=== PATIENT | female | born 1970 | race Caucasian/White ===

== ENCOUNTER → 2017-01-18 | Outpatient (CLI) | payer OTHER ==
[2017-01-18 13:19] LABS: ESTIMATED AVERAGE GLUCOSE 123 mg/dl; HA1C FLAG Normal (Normal)
[2017-01-18 15:05] LABS: ALT/SGPT 19 U/L (12-78); BLOOD UREA NITROGEN 16 mg/dl (7-18); BUN/CREATININE RATIO 19.1 (10-20); CARBON DIOXIDE 29 mmol/L (21-32); CHLORIDE 105 mmol/L (98-107); CHOLESTEROL 124 mg/dl (0-200); CREATININE 0.86 mg/dl (0.60-1.20); GLUCOSE 101 mg/dl (70-99); POTASSIUM 3.4 mmol/L (3.5-5.1); SODIUM 142 mmol/L (136-145)
[2017-01-18 15:16] LABS: ALB/GLOB RATIO 0.8 (0.9-2); ALKALINE PHOSPHATASE 94 U/L (45-117); AST/SGOT 10 U/L (15-37); CHOLESTEROL/HDL RATIO 3.1; HDL CHOLESTEROL 40 mg/dl; LDL CHOLESTEROL CALCULATED 68 mg/dl; TRIGLYCERIDES 80 mg/dl (0-150); VERY LOW DENSITY LIPOPROT CALC 16 mg/dl
== END | disposition home or self-care (01) ==
LOC: C.LABPBG 09:19
PROVIDERS: ATTEND Physician Assistant
DX: E03.9 Hypothyroidism, unspecified (principal); E78.5 Hyperlipidemia, unspecified; Z13.1 Encounter for screening for diabetes mellitus